=== PATIENT | female | born 1980 | race Asian ===

== ENCOUNTER → 2017-02-05 | Outpatient (CLI) | payer MEDICAID ==
[~2017-02-05] MED LIST: PROT40TA PO
--- NOTE | 2017-02-05 11:55 | EKG ---
Date Performed: 02/05/2017 Time Performed: 08:39:00 PTAGE: 36 years EKG: Sinus rhythm . Incomplete RBBB Poor R wave progression - probable normal variant Anterior T wave changes are nonsp ecific Borderline ECG NO PREVIOUS TRACING DOCTOR: Luisito Rincon Interpretating Date/Time 02/05/2017 11:54:08
== END ==
LOC: HCAV 08:27
DX: F90.2 Attention-deficit hyperactivity disorder, combined type (principal); I45.10 Unspecified right bundle-branch block
CPT/HCPCS: 93005